=== PATIENT | female | born 1955 | race Two or more races ===

== ENCOUNTER → 2022-01-04 09:30 | Outpatient (BNVA) | payer OTHER, SELFPAY | PROVIDERS: PCP Internal Medicine; Visit Provider Nurse Practitioner Family | DX: F07.81 Postconcussional syndrome (principal); F09 Unspecified mental disorder due to known physiological condition; G44.86 Cervicogenic headache | CPT/HCPCS: 99212 ==

== ENCOUNTER → 2022-03-06 09:12 | Outpatient (BNVA) | payer OTHER, SELFPAY | PROVIDERS: PCP Internal Medicine; Visit Provider Nurse Practitioner Family | DX: M79.10 Myalgia, unspecified site (principal); R51.9 Headache, unspecified; F07.81 Postconcussional syndrome; F48.8 Other specified nonpsychotic mental disorders; R23.4 Changes in skin texture; Z88.6 Allergy status to analgesic agent; Z88.8 Allergy status to other drugs, medicaments and biological substances; Z79.899 Other long term (current) drug therapy | CPT/HCPCS: 99212 ==

== ENCOUNTER → 2022-05-10 07:50 | Outpatient (BNVA) | payer OTHER, SELFPAY | PROVIDERS: PCP Internal Medicine; Visit Provider Nurse Practitioner Family | DX: G44.86 Cervicogenic headache (principal); F07.81 Postconcussional syndrome; F09 Unspecified mental disorder due to known physiological condition | CPT/HCPCS: 99212 ==

== ENCOUNTER → 2022-07-22 08:29 | Outpatient (BNVA) | payer OTHER, SELFPAY | PROVIDERS: PCP Internal Medicine; Visit Provider Nurse Practitioner Family | DX: F07.81 Postconcussional syndrome (principal); R42 Dizziness and giddiness; M79.10 Myalgia, unspecified site; G44.86 Cervicogenic headache; F09 Unspecified mental disorder due to known physiological condition | CPT/HCPCS: 99212 ==

== ENCOUNTER → 2022-11-21 13:51 | Outpatient (BNVA) | payer OTHER, SELFPAY | PROVIDERS: PCP Internal Medicine; Visit Provider Nurse Practitioner Family | DX: R42 Dizziness and giddiness (principal); G44.86 Cervicogenic headache; F07.81 Postconcussional syndrome | CPT/HCPCS: 99212 ==

== ENCOUNTER → 2023-02-27 10:50 | Outpatient (BNVA) | payer OTHER, SELFPAY | PROVIDERS: PCP Internal Medicine; Visit Provider Nurse Practitioner Family | DX: M79.10 Myalgia, unspecified site (principal); R42 Dizziness and giddiness; W19.XXXA Unspecified fall, initial encounter; F07.81 Postconcussional syndrome; G44.86 Cervicogenic headache; R29.818 Other symptoms and signs involving the nervous system | CPT/HCPCS: 99212 ==

== ENCOUNTER 2023-06-02 11:30 | Outpatient (AMB) | payer OTHER, SELFPAY ==
--- NOTE | 2023-06-02 11:30 | MHC.OFFVIS ---
Intake Vital Signs 06/02/23 11:31 Height 5 ft 3 in Weight 169 lb 4 oz BMI 30.0 BP 152/94 H Blood Pressure Location Rt brachial Position Sitting Pulse 104 H Pulse Source Pulse Oximeter Pulse Oximetry (%) 97 Oxygen Delivery Method Room Air Intake Visit Reasons: WC 3m follow up - LVM Intake Note: Pt presents as a WC f/u. Pt states Basically the same, not as much back pressure, not a constant headache. Still have noticed If I'm looking and I turn, I don't feel the vertigo, I feel like the head is moving-not spinning. 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 30 days HPI HPI Comments History of Present Illness Details 67-yr-old female presents for f/u visit. Pt denies any significant interval medical changes. She did retry the B2 and Mag- but caused worsening headache so stop. She has not been having a constant headache. Has had days without any headache at all. She now sporadically has the more intense pressure headache or the ping pong or sharp/stabbing headache- now much slower- may have 1 per week or one every 2 weeks. The new bilateral occipital region aching headache is not as present- not a/w photo/phonophobia. These headaches do not respond as well to the rizatripatn. Her neck is not as tight. She is compliant w/ Indomethacin 75mg tid. However the propranolol 20mg bid was not covered by work comp- so she is not taking it. She is using Rizatriptan 10mg prn- which helps her typical headaches. She is still prone to dizziness and feeling off-balance- more so if she moves or gets up to fast, but sometimes even if turning slower- it may feel like her brain is shifting. She has gotten a cane- her dtr found her one- using for walking longer distances. She reports that she cannot use her phone or the computer or read (a book) for much longer than 20 minutes- as the light and visual tracking elicits dizziness, eye fatigue. PFSH Medical History HTN (hypertension) Surgical History H/O hernia repair H/O wrist surgery H/O: hysterectomy Family History Mother Colon cancer Father Myocardial infarction Brother Myocardial infarction Social History (Updated 06/02/23 @ 11:38 by Jessi Roque CMA) Alcohol intake: current Alcohol intake frequency: holidays/special occasions only Patient Tobacco Use Status: Never used Tobacco Review of Systems Const All systems reviewed & are unremarkable except as noted in HPI and below Physical Exam Vital Signs: Last Vital Signs Pulse 104 H 06/02/23 11:31 BP 152/94 H 06/02/23 11:31 Pulse Ox 97 06/02/23 11:31 Oxygen Delivery Method Room Air 06/02/23 11:31 BMI result Body Mass Index 30.0 Const General: cooperative and no acute distress Orientation/consciousness: patient oriented x3 HEENT Head: Yes normocephalic Resp Effort & Inspection: normal respiratory effort and able to speak in complete sentences Neuro General: patient oriented x3, gait normal and CN's II-XI intact bilaterally Cognition (Neuro): normal cognition Motor exam (neuro): 5/5 motor strength present throughout Psych Appearance: grossly normal Mental Status: mental status grossly normal Speech and movement: Normal speech and movement present Affect: normal affect Attitude: cooperative Thought process: Normal thought process present Thought content: Normal thought content present Insight: Good insight present (Psych) Judgement: Good judgement present (Psych) Assessment & Plan Assessment & Plan (1) Postconcussion syndrome: Code(s): F07.81 - Postconcussional syndrome (2) Headache, cervicogenic: Comment: multiple headache types: ping-pong headache is indomethacin responsive; right sided headache; is triptan responsive, new onset occipital headache- ? secondary to stopping Mag and B2 Code(s): G44.86 - Cervicogenic headache (3) Vertigo: Code(s): R42 - Dizziness and giddiness Plan Hold Riboflavin 400mg qam and Magnesium Ox 400mg qhs. Continue Indomethacin 75 mg tid. Avoid other NSAID use. Check CBC/CMP Resume Propranolol at 20mg bid. Continue Rizatriptan 10mg prn. Continue PT exercises Continue blue light filtering glasses. Use walking cane- use when dizzy or on uneven surfaces. When apporved- [facility] balance evaluation to further assess pt's ongoing balance difficulties. ? f/u in 2-3 months or sooner prn. Orders: Orders Comprehensive Met. Panel Today G44.86 - Cervicogenic headache, I10 - Essential (primary) hypertension, R42 - Dizziness and giddiness Complete Blood Count Auto Diff Today G44.86 - Cervicogenic headache, I10 - Essential (primary) hypertension, R42 - Dizziness and giddiness Medications: New propranolol 20 mg PO BID 30 days 60 tabs 3RF Coding Level of Care Code Est Pt Level 4 (90716) Diagnoses Postconcussion syndrome F07.81 Headache, cervicogenic G44.86 Vertigo R42
[2023-06-02 11:31] VITALS: BP 152/94; PULSE 104; O2SAT 97
== END 2023-06-02 12:27 | disposition home or self-care (01) ==
LOC: HO.HSMS 11:30
PROVIDERS: PCP Internal Medicine; Visit Provider Nurse Practitioner Family
DX: F07.81 Postconcussional syndrome (principal); G44.86 Cervicogenic headache; R42 Dizziness and giddiness
CPT/HCPCS: 99214

== ENCOUNTER → 2023-06-02 11:30 | Outpatient (BNVA) | payer OTHER, SELFPAY | PROVIDERS: PCP Internal Medicine; Visit Provider Nurse Practitioner Family | DX: F07.81 Postconcussional syndrome (principal); G44.86 Cervicogenic headache; R42 Dizziness and giddiness; Z79.899 Other long term (current) drug therapy | CPT/HCPCS: 99212 ==

== ENCOUNTER 2023-09-18 11:07 | Outpatient (AMB) | payer OTHER, SELFPAY ==
--- NOTE | 2023-09-18 11:08 | A.OFFVIS_ITS ---
Intake Vital Signs 09/18/23 11:09 Height 5 ft 3 in Weight 167 lb BMI 29.6 BP 138/88 Blood Pressure Location Rt brachial Position Sitting Intake Visit Reasons: WC 3m follow up-Confirmed Intake Note: Patient presents for 3 month follow up. Patient states no issues or concerns Allergies acetaminophen [From Percocet] Allergy (Mild, Verified 09/18/23 11:11) unknown oxycodone [From Percocet] Allergy (Mild, Verified 09/18/23 11:11) unknown Medication List - Last Reconciled 09/18/23 by RTUE Morin cane As directed cane Tripod walking cane indomethacin 75 mg (3 x 25 mg) PO TID 30 days lidocaine 5% 1 patch topical DAILY PRN meclizine 25 mg PO TID PRN propranolol 20 mg PO BID 30 days rizatriptan take 1 tab at onset of headache; if no relief may repeat 1 tab after at least 2 hrs; max = 2 tabs/24 hr, 4 tabs/wk. 30 days HPI HPI Comments History of Present Illness Details 68-yr-old female presents for f/u visit. Pt denies any significant interval medical changes. Still having a sporadic sharp, stabbing pain- location varies, but more intense on the right. Lasts < 5 minutes. Now occurring 3-4 x's per week. She recently was w/o her Indomethacin for a few days, these pains came on stronger, more frequent, and lasted longer. She is having dizziness if she gets up too quickly or if walking down stairs and has to look down. Rarely the dizziness will alst long enough that she needs to take a meclizine. Feels she is better able to adapt to the dizziness. The cane does help. She did have a recent few days of right knee swelling and pain, which resolved with rest and ice. [facility] Medical History HTN (hypertension) Surgical History H/O wrist surgery H/O hernia repair H/O: hysterectomy Family History Mother Colon cancer Father Myocardial infarction Brother Myocardial infarction Social History Alcohol intake: current Alcohol intake frequency: holidays/special occasions only Patient Tobacco Use Status: Never used Tobacco Review of Systems Const All systems reviewed & are unremarkable except as noted in HPI and below Physical Exam Vital Signs: Last Vital Signs BP 138/88 09/18/23 11:09 BMI result Body Mass Index 29.6 Const General: cooperative and no acute distress Orientation/consciousness: patient oriented x3 HEENT Head: Yes normocephalic Resp Effort & Inspection: normal respiratory effort and able to speak in complete sentences Neuro Other: Unsteady gait during turns. Steadier with cane. General: patient oriented x3 and CN's II-XI intact bilaterally Cognition (Neuro): normal cognition Motor exam (neuro): 5/5 motor strength present throughout Psych Appearance: grossly normal Mental Status: mental status grossly normal Speech and movement: Normal speech and movement present Affect: normal affect Attitude: cooperative Thought process: Normal thought process present Thought content: Normal thought content present Insight: Good insight present (Psych) Judgement: Good judgement present (Psych) Assessment & Plan Assessment & Plan (1) Postconcussion syndrome: Code(s): F07.81 - Postconcussional syndrome (2) Headache, cervicogenic: Comment: multiple headache types: ping-pong headache is indomethacin responsive; right sided headache; is triptan responsive, new onset occipital headache- ? secondary to stopping Mag and B2 Code(s): G44.86 - Cervicogenic headache (3) Cognitive dysfunction: Onset Date: ~02/27/23 Comment: ? d/t postconcussion, ? r/t headache burden, ? age-related/MCI. Code(s): F09 - Unspecified mental disorder due to known physiological condition (4) Vertigo: Code(s): R42 - Dizziness and giddiness Plan Continue Indomethacin 75 mg tid. Avoid other NSAID use. Check BMP Meclizine 25mg tid prn. Continue Propranolol at 20mg bid. Continue Rizatriptan 10mg prn. Continue PT exercises Continue blue light filtering glasses. Use walking cane- use when dizzy or on uneven surfaces. ? f/u in 4 months or sooner prn. Orders: Orders Basic Metabolic Panel 09/18/23 I10 - Essential (primary) hypertension Medications: Changed From meclizine 25 mg PO TID PRN To meclizine 25 mg PO TID 30 days PRN 30 tabs 3RF dizziness Coding Level of Care Code Est Pt Level 4 (50484) Diagnoses Postconcussion syndrome F07.81 Headache, cervicogenic G44.86 Cognitive dysfunction F09 Vertigo R42
[2023-09-18 11:09] VITALS: BP 138/88; BMI 29.6
== END 2023-09-18 11:46 | disposition home or self-care (01) ==
PROVIDERS: PCP Internal Medicine; Visit Provider Nurse Practitioner Family
DX: G44.86 Cervicogenic headache (principal); F07.81 Postconcussional syndrome; F06.70 Mild neurocognitive disorder due to known physiological condition without behavioral disturbance; R42 Dizziness and giddiness
CPT/HCPCS: 99214

== ENCOUNTER → 2023-09-18 11:07 | Outpatient (BNVA) | payer OTHER, SELFPAY | PROVIDERS: PCP Internal Medicine; Visit Provider Nurse Practitioner Family | DX: F07.81 Postconcussional syndrome (principal); G44.86 Cervicogenic headache; F09 Unspecified mental disorder due to known physiological condition; R42 Dizziness and giddiness; Z79.899 Other long term (current) drug therapy | CPT/HCPCS: 99212 ==

== ENCOUNTER 2025-11-09 09:26 | Outpatient (AMB) | payer MEDICARE, SELFPAY ==
--- NOTE | 2025-11-09 09:30 | A.OFFPC_ITS ---
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 Left big toe has been swollen and painful. Has pessary Accompanied by: Self / Same As Patient Allergies acetaminophen (From Percocet) Allergy (Intermediate, Verified 11/09/25 09:51) Rash oxycodone (From Percocet) Allergy (Intermediate, Verified 11/09/25 09:51) Rash Tobacco use date assessed: 11/09/25 Fall risk assessment: No Falls in past year Last assessed Fall Risk: 11/09/25 Dental Screening Dental Screen Date: 11/09/25 Did you have a dental visit in the last 12 months?: Yes Was dental information given to patient?: Patient has dentist HPI HPI Comments History of Present Illness Details History of Present Illness The patient is a 70 year old female presenting to [facility] and for evaluation of left great toe swelling, discoloration, and pain. Raynaud's Phenomenon: The patient presents with a primary concern of a swollen left great toe, which has been present for about a month and has worsened with the recent cold weat her. She describes a faint blue patch on the toe and a recent episode of a red patch accompanied by sharp, shooting, intermittent pain that woke her from sleep. She reports a diagnosis of Raynaud's phenomenon approximately 50 years ago, characterized by blue discoloration of her toes and fingertips, for which she was treated with medication for two consecutive de guzman. She notes that her symptoms are typically more pronounced in her toes than her fingers and seem to be more sensitive at night. Chronic Low Back Pain: The patient has a history of myofascial pain syndrome, multilevel lumbosacral spondylosis without myelopathy, and lumbar facet arthropathy. She underwent a right L4-L5, L5-S1 radiofrequency ablation in 2021, which provided complete pain relief for two years. Recently, she has experienced a recurrence of intense, intermittent, right-sided low back pain, rated 10/10 in severity, which is provoked by standing after sitting and has impacted her daily activities and sleep. She is currently awaiting approval from workman's compensation for repeat medial branch blocks with the intention of proceeding with another radiofrequency ablation if effective. Vaginal Vault Prolapse: The patient has a history of prolapse of the vaginal vault post-hysterectomy, a midline cystocele, and occult stress urinary incontinence. She is under the care of a urogynocologist and uses a Gelhorn pessary. A corrective surgery requiring two surgeons was planned but has been postponed and is being rescheduled for after the spring school semester. Vertigo: The patient reports experiencing vertigo, described as an internal spinning sensation in her head, since a past accident that resulted in a back concussion. Symptoms can be triggered by turning too quickly or rising from a bent-over position, leading to a loss of balance. She uses a cane primarily for stability to prevent falls, especially in unfamiliar places, but does not require it at home or at her workplace. She denies any falls within the last year. 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 - Substance Use: Reports a remote histor y of smoking one cigarette a day for about a year at age 11 but denies current use. - She denies any history of illicit drug use. - Functional Status: Uses a cane for bal ance due to vertigo, particularly in unfamiliar environments. Family History: - Mother: of colon cancer at age 69 . - Maternal Grandmother: Breast cancer, d iagnosed around the patient's current age. - Father: of a massive heart attack at age 54. - Brother: of a massive heart attac k at age 53. Past Medical History - Myofascial pain syndrome - Multilevel lumbosacral spondylosis wit hout myelopathy - Lumbar facet arthropathy - Prolapse of vaginal vault post-hystere ctomy - Midline cystocele - Occult stress urinary incontinence - Labile blood pressure and white coat h ypertension - Migraine - Raynaud's phenomenon, diagnosed approx imately 50 years ago - Vertigo, secondary to a past back conc ussion - History of benign colonic polyps - History of soft tissue abscesses and i ntra-abdominal adhesions - History of a severe dog bite to the [facility] wrist in 1981 Health Maintenance - Comprehensive blood work will be order ed to establish a baseline, including a CBC, CMP, TSH, B12, folate, vitamin D, lipid panel, and HbA1c. - Urinalysis and an infectious disease p alfredo (Hepatitis B, Hepatitis C, HIV, syphilis) will also be ordered. - Referrals will be placed for a screeni ng colonoscopy and a screening mammogram, as the patient is overdue for both. [facility] Medical History (Updated 11/09/25 @ 11:02 by Haroon Palmer MD) Migraine Ambulates with cane Vaginal vault prolapse Chronic lower back pain Raynauds phenomenon White coat syndrome with high blood pressure but without hypertension Raynauds disease Toe pain, right HTN (hypertension) Surgical History H/O wrist surgery H/O hernia repair H/O: hysterectomy Family History Mother Colon cancer Father Myocardial infarction Brother Myocardial infarction Social History Housing: House Alcohol intake: current Alcohol intake frequency: holidays/special occasions only Patient Tobacco Use Status: Never used Tobacco e-Cigarette/Vaping Use: Never Used service: No Current occupational status: employed Cognitive needs: Yes (cane) Hearing needs: No Vision needs: Yes (glasses) Questionnaire PHQ-9 Over the last 2 weeks, how often have you been bothered by any of the following problems? 1. Little interest or pleasure in doing things: not at all 2. Feeling down, depressed, or hopeless: not at all 3. Trouble falling or staying asleep, or sleeping too much: not at all 4. Feeling tired or having little energy: not at all 5. Poor appetite or overeating: not at all 6. Feeling bad about yourself - or that you are a failure or have let yourself o r your family down: not at all 7. Trouble concentrating on things, such as reading the newspaper or watching television: not at all 8. Moving or speaking so slowly that other people could have noticed. Or the opposite - being so fidgety or restless that you have been moving around a lot more than usual: not at all 9. Thoughts that you would be better off or of hurting yourself in some way: not at all Total score: 0 Depression Screening Interpretation: Negative Depression Screening Done: Yes Source: Developed by Drs. Manjinder Pemberton, Maria Fernanda Baldwin, Michael Stahl and colleagues, with an educational mona from [employer]. Thrive Questionnaire Date Thrive assessed: 11/09/25 I am a: Patient What is your living situation today?: I have a steady place to live Within the past 12 months, did the food you bought not last and you didn't have the money to get more?: Never true Within the past 12 months, did you worry whether your food would run out before you got money to buy more?: Never true Do you have trouble paying for medicines?: No Do you have trouble getting transportation to medical appointments?: No Do you have trouble paying your heating and electricity bill?: Yes Do you have trouble taking care of your child, family member or friend?: No Do you have trouble with day-to-day activities such as bathing, preparing meals, shopping, managing finances, etc.?: No Are you currently unemployed and looking for a job?: No Are you interested in more education?: No Please select the resources that you would like help with: Utilities Currently or been in a relationship where the following occur: I choose not to answer THRIVE Score: 1 AUDIT C Alcohol Use Questionnaire (AUDIT-C) 1. How often do you have a drink containing alcohol?: Never Total Score: 0 SHWETA-7 AMB Questionnaire SHWETA-7 Date SHWETA - 7 assessed: 11/09/25 Feeling nervous, anxious, or on edge: 0 = Not at all Not being able to stop or control worryin = Not at all Worrying too much about different things: 0 = Not at all Trouble relaxin = Not at all Being so restless that it is hard to sit still: 0 = Not at all Becoming easily annoyed or irritable: 0 = Not at all Feeling afraid as if something awful might happen: 0 = Not at all Total SHWETA-7 score (0-4 normal; 5-9 mild; 10-14 moderate; 15-21 severe): 0 Source: Developed by Drs. Manjinder Pemberton, Maria Fernanda Baldwin, Michael Stahl and colleagues, with an educational omna from [employer]. Review of Systems Narrative Review of Systems - Neurological: Reports vertigo with an internal spinning sensation, dizziness, and imbalance, especially with quick movements. - Musculoskeletal: Reports intense, intermittent, right-sided low back pain. - Extremities: Reports a swollen, tender left great toe with discoloration and sharp, intermittent pain. - She also reports a recently resolved issue of a swollen, tender, and painful right middle finger. - Genitourinary: Reports stress urinary incontinence. - General: Sleep is adequate. - GI/: Reports normal bowel and bladder function. 10-point ROS reviewed and negative except as noted in HPI Physical exam (Primary Care) Vital Signs: Last Vital Signs Temp 98.3 F 11/09/25 09:53 Pulse 86 11/09/25 09:53 BP 178/88 H 11/09/25 09:53 Pulse Ox 97 11/09/25 09:53 Oxygen Delivery Method Room Air 11/09/25 09:53 Tobacco/Smoking Status: Tobacco use Status Tobacco use date assessed 11/09/25 11/09/25 09:31 Patient Tobacco Use Status Never used Tobacco 11/09/25 09:31 e-Cigarette/Vaping Use Never Used 11/09/25 09:31 PHQ-9: PHQ-9 Score PHQ-9: Total score 0 11/09/25 10:08 Depression Screening Interpretation: Negative Thrive Assessment: Date of Thrive Assessment Date Thrive assessed 11/09/25 11/09/25 09:31 Currently or been in a relationship where the following occur: I choose not to answer Narrative Physical Exam General: Well-appearing, in no acute distress. Vital signs: Within normal limits. HEENT: Normocephalic, atraumatic. PERRLA, EOMI. Conjunctiva clear, sclera anicteric. Oropharynx clear, mucous membranes moist. TMs intact bilaterally. Neck: Supple, no lymphadenopathy, no thyromegaly, no JVD or carotid bruits. Cardiovascular: RRR, normal S1/S2, no murmurs, rubs, or gallops. Peripheral pulses 2+ and symmetric. No edema. Respiratory: Lungs clear to auscultation bilaterally, no wheezes, rales, or rhonchi. Normal effort. Abdomen: Soft, non-tender, non-distended. Normoactive bowel sounds. No hepatosplenomegaly, no masses. MSK: Full range of motion, no joint swelling or deformity. Normal gait. Uses a cane for balance due to vertigo. Skin: Warm, dry, intact. No rashes, lesions, or pallor. Notable for a swollen left big toe with a faint blue patch and intermittent red patch. Neuro: Alert and oriented x3. Cranial nerves II-XII intact. Strength 5/5 throughout. Sensation intact. Reflexes 2+ symmetric. Normal coordination and gait. Reports vertigo and dizziness, uses a cane for stability. Psych: Appropriate mood and affect. Normal judgment and insight. Office Procedures Flu Questionnaire Does the patient have a severe egg allergy?: No Does the patient have severe life threatening allergies?: No Does the patient have a fever or illness today?: No Has the patient ever had Guillain-Sutton Syndrome?: No Has the patient ever had any past reaction to a flu shot?: No Immunizations Fluarix 9095-2615 (PF) 45 mcg (15 mcg x 3)/0.5 mL IM syringe Performing Provider: Haroon Palmer MD [facility] Administered by: Shirley Nolasco CMA on 11/09/25 10:08 Dose Route Admin Location Dispensed Lot Number Expiration Date NDC Rivet [employer]ater 0.5 mL IM Left Deltoid 0.5 mL [id number] 05/23/26 [id number] [employer] VIS Given Date VIS Provided VIS Publication Date 11/09/25 Single Vaccine 24 Eligibility Eligibility Date Funding Source Not [facility] Eligible 11/09/25 Private Coding Level of Care Code New Pt Level 4 (58316) Add On Problem Visit Only Diagnoses Raynauds disease I73.00 White coat syndrome with high blood pressure but without hypertension R03.0 Raynauds phenomenon I73.00 Chronic lower back pain M54.50; G89.29 Vaginal vault prolapse N81.9 Vertigo R42 Ambulates with cane Z99.89 Migraine G43.909 Toe pain, right M79.674 Falls W19.XXXA HTN (hypertension) I10 Assessment & Plan Assessment & Plan (1) Raynauds disease: Code(s): I73.00 - Raynaud's syndrome without gangrene Category: Medical (2) White coat syndrome with high blood pressure but without hypertension: Code(s): R03.0 - Elevated blood-pressure reading, without diagnosis of hypertension Category: Medical (3) Raynauds phenomenon: Code(s): I73.00 - Raynaud's syndrome without gangrene Category: Medical (4) Chronic lower back pain: Code(s): M54.50 - Low back pain, unspecified; G89.29 - Other chronic pain Category: Medical (5) Vaginal vault prolapse: Code(s): N81.9 - Female genital prolapse, unspecified Category: Medical (6) Vertigo: Code(s): R42 - Dizziness and giddiness Category: Medical (7) Ambulates with cane: Code(s): Z99.89 - Dependence on other enabling machines and devices Category: Medical (8) Migraine: Code(s): G43.909 - Migraine, unspecified, not intractable, without status migrainosus Category: Medical (9) Toe pain, right: Code(s): M79.674 - Pain in right toe(s) Category: Medical (10) Falls: Code(s): W19.XXXA - Unspecified fall, initial encounter Category: Medical (11) HTN (hypertension): Code(s): I10 - Essential (primary) hypertension Category: Medical Plan Consent The patient provided verbal consent to have a picture taken of her affected toe for documentation in her medical record. Patient was informed and verbally consented to the use of an ambient scribe for clinic note documentation during this visit. Plan 1. Raynaud's Phenomenon - A trial of nifedipine 30 mg extended-release once daily will be initiated to manage symptoms. - An arterial duplex ultrasound of the bilateral lower extremities will be ordered to evaluate for underlying peripheral arterial disease. - A referral will be placed for a podiatry consultation. 2. Chronic Low Back Pain - The patient's chronic back pain is being managed by a pain specialist. - She is awaiting worker's compensation approval for further intervention. - No changes to her current management plan were made at this visit. 3. Vaginal Vault Prolapse - The patient is under the care of a urogynocologist for this condition. - She is awaiting surgical correction, and no changes to her management were made at this visit. 4. Follow-Up - The patient is to return to the clinic in two weeks to review the results of the ordered diagnostic tests. Discussion Notes I have reviewed the patient's extensive medical history and her presenting complaint of left great toe pain and discoloration. I explained that while her symptoms are consistent with her history of Raynaud's phenomenon, it is imp ortant to rule out any underlying vascular compromise. To that end, I am ordering a bilateral lower extremity arterial ultrasound and placing a referral to podiatry for further evaluation. I will initiate a trial of low-dose nifedipine to see if it provides symptomatic relief. We also discussed the importance of preventative health, and I emphasized that she is overdue for both a screening colonoscopy and mammogram, given her age and family history. I have placed referrals for these screenings, in addition to ordering baseline laboratory studies. The patient will follow up in two weeks to go over all of the results. Patient Instructions - Please go to our on-site lab for blood work. - You do not need to fast for these tests. - Our referral center will call you to schedule several appointments: an ultrasound of your legs, a podiatry (foot doctor) visit, a colonoscopy, and a mammogram. - I have sent a prescription for Nifedipine 30 mg to your pharmacy. - Please take one tablet by mouth once daily for your toe symptoms. - Please schedule a follow-up appointment in two weeks to review your test results. Medical Decision Making This 70-year-old female presents to establish care with multiple chronic conditions and an acute complaint of left great toe pain, swelling, and discoloration. Her symptoms are highly suggestive of an exacerbation of her long-standing Raynaud's phenomenon, especially given the association with cold weather. However, given the tenderness, discoloration, and potential risk for tissue damage, it is prudent to rule out underlying peripheral arterial disease. Therefore, a bilateral lower extremity arterial duplex ultrasound is warranted. For management, I will initiate a trial of low-dose nifedipine, a calcium channel kelly commonly used for Raynaud's, to assess for symptomatic improvement. A referral to podiatry is also appropriate for expert evaluation and management of the foot complaint. The patient's other chronic issues, including her low back pain and vaginal prolapse, are being appropriately managed by other specialists, and I will not intervene in their care plans at this time. As this is an initial visit, comprehensive baseline labs are being ordered. The patient is also significantly overdue for age- and risk-appropriate cancer screenings, so referrals for both a colonoscopy and mammogram have been placed based on her personal and family history. Follow-up in two weeks is scheduled to review all results and adjust the plan accordingly. Total Time Statement 30 min Total time spent caring for the patient today includes pre-visit chart review, documentation, review of laboratory and diagnostic imaging results, medication reconciliation, medically necessary evaluation, counseling on diagnoses, care coordination, ordering appropriate tests and medications, review of tests performed by other providers, reporting test results to the patient, and communication with other healthcare providers. Orders: Orders Hepatitis C Antibody Today Z13.9 - Encounter for screening, unspecified TSH reflex Free T4 Today Z13.9 - Encounter for screening, unspecified HIV Ab/Ag Today Z13.9 - Encounter for screening, unspecified Vitamin B12 and Folate Today Z13.9 - Encounter for screening, unspecified Magnesium Today Z13.9 - Encounter for screening, unspecified MM screening mammo BI Today Z12.31 - Encounter for screening mammogram for malignant neoplasm of breast US arterial duplex LE BI Today I73.00 - Raynaud's syndrome without gangrene Influenza [id number] Immunization Today Z23 - Encounter for immunization Complete Blood Count Auto Diff Today Z13.9 - Encounter for screening, unspecified Hepatitis B Surface Antigen Today Z13.9 - Encounter for screening, unspecified Syphilis Screen Today Z13.9 - Encounter for screening, unspecified Comprehensive Met. Panel Today Z13.9 - Encounter for screening, unspecified UA CC w/rflx Micro + Cult Today Z13.9 - Encounter for screening, unspecified Lipid Panel Today Z13.9 - Encounter for screening, unspecified Hemoglobin A1c Today Z13.9 - Encounter for screening, unspecified Hepatitis B Surface Antibody Today Z13.9 - Encounter for screening, unspecified Vitamin D 25-OH (D2 and D3) Today Z13.9 - Encounter for screening, unspecified Microalbumin, Random (w Creat) Today Z13.9 - Encounter for screening, unspecified Referrals Open Access Screening Colonoscopy Referral Z12.11 - Encounter for screening for malignant neoplasm of colon, Z12.12 - Encounter for screening for malignant neoplasm of rectum Podiatry Referral M79.227 - Pain in right toe(s) Medications: New nifedipine ER 30 mg PO DAILY 30 tabs 0RF I73.00 - Raynaud's syndrome without gangrene
[2025-11-09 09:53] VITALS: BP 178/88; PULSE 86; TEMP 36.8; O2SAT 97
--- OUTSIDE RECORDS SUMMARY | 2025-11-09 10:46 | XMS_ITS | Clinical Summary ---
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 Active rizatriptan (MAXALT) 10 mg tablet Take 10 mg by mouth as needed. May repeat in 2 hours if needed Active amitriptyline (ELAVIL) 25 mg tablet Take 1.5 Tabs by mouth at bedtime Active lidocaine (LIDODERM) 5 % patch Place 1 Patch onto the skin every 24 hours. Apply for no more than 12 hours in any 24 hour period., Disp-28 Patch, R-0, Normal Per pt this is workers comp., we are aware her regular insurance does not cover. 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 F/u in 1 year Acute right-sided low back pain without sciatica 06/19/2017 Immunizations Immunization Administration Dates Next Due Moderna SARS-CoV-2 COVID-19, mRNA, LNP-S, preservative free 10/27/2021,02/14/2021,01/17/2021 Surgical History Surgery Date Site/Laterality Comments WRIST SURGERY 1981 Right PROCEDURE: HISTORICAL WRIST SURGERY; COMMENT: dog bite OTHER SURGICAL HISTORY 2002 PROCEDURE: HI TOTAL ABDOMINAL HYSTERECT W/WO RMVL TUBE OVARY; COMMENT: [facility] HERNIA REPAIR 09/2015 PROCEDURE: HISTORICAL HERNIA REPAIR/VAUGHN COLONOSCOPY 09/07/2015 PROCEDURE: HISTORICAL COLONOSCOPY; COMMENT: negative COLONOSCOPY 07/30/2018 PROCEDURE: HISTORICAL COLONOSCOPY; COMMENT: 1 diminutive polypm repeat colonoscopy in 5 years. OTHER SURGICAL HISTORY 07/30/[address] [facility] PROCEDURE: COLONOSCOPY LESION REMOVAL; COMMENT: diminutive adenoma; repeat in 5 yrs under propofol Medical History Medical History Date Comments History of colon polyps 12/09/2017 DX:Histo ry of colon polyps Family History Medical History Relation Name Comments Heart attack Brother No Known Problems Daughter 1 No Known Problems Daughter 2 Heart attack Father Heart attack Maternal Grandfather Heart attack Maternal Grandmother in her 90's Colon cancer Mother Coronary artery disease Paternal Grandfather Stroke Paternal Grandmother No Known Problems Son Blindness Neg Hx Cataracts Neg Hx Glaucoma Neg Hx Macular degeneration Neg Hx Strabismus Neg Hx Relation Name Status Comments Brother Daughter 1 Alive Daughter 2 Alive Father Maternal Grandfather Maternal Grandmother Mother Paternal Grandfather Paternal Grandmother Son Alive Social History Tobacco Use Types Packs/Day Years Used Date Smoking Tobacco: Former Smokeless Tobacco: Never Alcohol Use Standard Drinks/Week Comments Yes 0 (1 standard drink = 0.6 oz pur e alcohol) Comments Unknown Sex and Gender Information Value Date Recorded Sex Assigned at Not on file Legal Sex Female 8:59 AM EST Gender Identity Not on file Sexual Orientation Not on file Last Filed Vital Signs Vital Sign Reading Time Taken Comments Blood Pressure 116/74 07/07/2024 1:30 PM EDT L A rm Pulse 84 07/07/2024 1:30 PM EDT Temperature - - Respiratory Rate - - Oxygen Saturation - - Inhaled Oxygen Concentration - - Weight 73 kg (160 lb 14.4 oz) 07/04/2022 8:24 AM EDT Height 160 cm (5' 3 ) 07/04/2022 8:24 AM EDT Body Mass Index 28.5 07/04/2022 8:24 AM EDT Plan of Treatment Health Maintenance Due Date Last Done Comments Colorectal Cancer Screening: Colonoscopy 1955 Pneumococcal Vaccine: 50+ Years (1 of 1 - PCV) 2003 Zoster Vaccines (1 of 2) 2003 Breast Cancer Screening 07/01/2020 07/01/2018 Falls Risk Assessment 11/02/2022 Medicare Annual Wellness Visit 11/02/2022 Osteoporosis Screening (Bone Density Screening) 11/02/2022 Social Influencers of Health Screening 11/02/2022 COVID-19 Vaccine ( season) 2025 08/12/2024, 10/02/2023, 12/02/2022, Additional history exists Influenza Vaccine (#1) 2025 11/02/2019 RSV Immunization Adult Patients (1 - 1-dose 75+ series) 2028 DTaP,Tdap,and Td Vaccines (3 - Td or Tdap) 11/05/2029 11/05/2019, 06/06/2015 Hepatitis C Screening Completed 06/19/2017 Depression Screening Completed 03/03/2025 HIB Vaccines Aged Out No longer eligi ble based on patient's age to complete this topic HPV Vaccines Aged Out No longer eligi ble based on patient's age to complete this topic Hepatitis A Vaccines Aged Out No long er eligible based on patient's age to complete this topic Hepatitis B Vaccines Aged Out No long er eligible based on patient's age to complete this topic IPV Vaccines Aged Out No longer eligi ble based on patient's age to complete this topic MMR Vaccines Aged Out No longer eligi ble based on patient's age to complete this topic Meningococcal ACWY Vaccine Aged Out N o longer eligible based on patient's age to complete this topic Meningococcal B Vaccine Aged Out No l onger eligible based on patient's age to complete this topic RSV Immunization Patients Under 20 months Aged Out No longer eligible based on patient's age to complete this topic Varicella Vaccines Aged Out No longer eligible based on patient's age to complete this topic Procedures Procedure Name Priority Date/Time Associated Diagnosis Comments SCR MAMMO BI INCL CAD Routine 07/01/2018 8:45 AM EDT Encounter for screening mammogram for malignant neoplasm of breast HEPATITIS C SCREENING Routine 06/19/2017 from Last 3 Months or Most Recently Relevant to Health Maintenance Results * SCR MAMMO BI INCL CAD (07/01/2018 8:45 AM EDT) Anatomical Region Laterality Modality Radiographic Nikkie ging 06/22/2018 4:29 PM EDT Narrative 07/01/2018 10:11 AM EDT This is a summary report. The complete report is available in the patient's medical record. If you cannot access the medical record, please contact the sending organization for a detailed fax or copy. Full field digital screening mammography, reviewed with CAD and compared to previous. The breasts are composed mostly of fatty tissue. No suspicious mass, architectural distortion or suspicious calcifications are identified. IMPRESSION: : No mammographic evidence of malignancy. BIRADS 1-Negative; N. 5 year breast cancer risk assessment 2.2 % Lifetime breast cancer risk assessment 8.9 % Breast cancer risk category Low (<15%) Procedure Note Josiah Euceda MD - 11/12/2022 This is a summary report. The complete report is available in thepatient's medical record. If you cannot access the medical record, pleasecontact the sending organization for a detailed fax or copy. Full field digital screening mammography, reviewed with CAD and comparedto previous. The breasts are composed mostly of fatty tissue. Nosuspicious mass, architectural distortion or suspicious calcifications areidentified. IMPRESSION: : No mammographic evidence of malignancy. BIRADS 1-Negative; N. 5 year breast cancer risk assessment 2.2 % Lifetime breast cancer risk assessment 8.9 % Breast cancer risk category Low (<15%) Ramses Bernal MD IMG XR PROCEDURES Final R esult * Hepatitis C Screening (06/19/2017) Hepatitis C Screening abstracted Historical Provider HEALTH MAINTENANCE Final Result from Last 3 Months or Most Recently Relevant to Health Maintenance Insurance MEDICARE Care Teams Crane Follower Relationship Specialty Start Date End Date Ramses Bernal MD PCP - General Internal Medicine 06/06/17
== END 2025-11-09 10:38 | disposition home or self-care (01) ==
PROVIDERS: PCP Student in an Organized Health Care Education/Training Program; Visit Provider Student in an Organized Health Care Education/Training Program
DX: I73.00 Raynaud's syndrome without gangrene (principal); R03.0 Elevated blood-pressure reading, without diagnosis of hypertension; M54.50 Low back pain, unspecified; G89.29 Other chronic pain; N81.9 Female genital prolapse, unspecified; R42 Dizziness and giddiness; Z99.89 Dependence on other enabling machines and devices; G43.909 Migraine, unspecified, not intractable, without status migrainosus; M79.674 Pain in right toe(s); W19.XXXA Unspecified fall, initial encounter; I10 Essential (primary) hypertension; Z23 Encounter for immunization

== ENCOUNTER 2025-11-09 09:26 | Outpatient (REF) | payer MEDICARE, SELFPAY ==
[2025-11-09 14:09] LABS: MANUAL DIFF FLAG NO
[2025-11-09 14:13] LABS: Hematocrit 45.4 % (37.0-47.0); Hemoglobin 15.0 g/dl (12.0-16.0); Imm Gran Abs Auto 0.01 X10*3/uL (0.00-0.03); Imm Gran Pct Auto 0.2 % (0.0-0.4); Lymphocytes Absolute Auto 1.0 X10*3/uL (1.2-4.9); Mean Corpuscular HGB Conc 33.0 g/dl (31.0-35.0); Mean Corpuscular Hemoglobin 31.4 pg (27.0-33.0); Mean Corpuscular Volume 95.2 fL (80.0-98.0); NRBC Abs Auto 0.000 X10*3/uL (0.0-0.012); NRBC Pct Auto 0.0 /100WBC (0.0-0.2); Platelet Count 279 X10*3/uL (160-400); Red Blood Count 4.77 X10*6/uL (4.20-5.50); White Blood Count 6.3 X10*3/uL (4.8-10.8)
[2025-11-09 14:29] LABS: Appearance Urine Clear; Glucose Urine UA Negative (Negative); PH 6.5 (5.0-9.0); Specific Gravity - Urine 1.020 (1.005-1.025); UMIC TRIGGER UACC YES
[2025-11-09 15:33] LABS: Microalbum/Creatinine Ratio Ur 31.2 ug/mg cr (<30)
[2025-11-09 15:42] LABS: Alanine Aminotransferase 23 U/L (0-31); Albumin Level 4.7 g/dL (3.5-5.0); Alkaline Phosphatase 102 U/L (39-117); Anion Gap 11 (12-20); Aspartate Amino Transferase 27 U/L (5-31); Blood Urea Nitrogen 13 mg/dL (9-16); Calcium 9.4 mg/dL (8.4-10.2); Carbon Dioxide 30 mmol/L (22-29); Chloride 104 mmol/L (96-108); Cholesterol 205 mg/dL (<200); Estimated Glomerular Filt Rate > 60; HDL Cholesterol 47 mg/dL (>40); Magnesium 2.2 mg/dL (1.6-2.6); Potassium 3.7 mmol/L (3.3-5.1); Sodium 141 mmol/L (135-145); Total Protein 7.5 g/dL (6.5-8.0); Triglycerides 104 mg/dL (<150)
[2025-11-09 15:54] LABS: Folate 9.1 ng/mL (> or = 4.0); Vitamin B12 522 pg/mL (200-900)
[2025-11-10 04:21] LABS: HBS Num1 0.00 mIU/mL (0-7.99); HIV Num 1 0.09 S/CO (0.00-0.99); ~HepC Num1 0.08 S/CO (0.00-0.79); ~Hepatitis B Surface Antibody NONREACTIVE (Nonreactive); ~Hepatitis C Antibody Nonreactive (Nonreactive)
[2025-11-10 04:57] LABS: Syphilis Screen Nonreactive (Nonreactive)
[2025-11-10 13:15] LABS: HBsAGNum1 0.26 S/CO (0.00-0.99); Hepatitis B Surface Antigen Negative (Negative)
[2025-11-13 10:47] LABS: Vitamin D 25-OH, D2 <4 ng/mL; Vitamin D 25-OH, D3 14 ng/mL; Vitamin D 25-OH, Total 14 ng/mL (30-100)
== END 2025-11-09 09:27 | disposition home or self-care (01) ==
LOC: HO.HKASLDS 09:26
PROVIDERS: PCP Internal Medicine; Visit Provider Student in an Organized Health Care Education/Training Program
DX: Z23 Encounter for immunization (principal); Z13.9 Encounter for screening, unspecified; I73.00 Raynaud's syndrome without gangrene; R03.0 Elevated blood-pressure reading, without diagnosis of hypertension; M54.50 Low back pain, unspecified; G89.29 Other chronic pain; N81.9 Female genital prolapse, unspecified; R42 Dizziness and giddiness; Z99.89 Dependence on other enabling machines and devices; G43.909 Migraine, unspecified, not intractable, without status migrainosus; M79.674 Pain in right toe(s); I10 Essential (primary) hypertension; Z91.81 History of falling
CPT/HCPCS: 36415; 80053; 80061; 81001; 82043; 82306; 82570; 82607; 82746; 83036; 83735; 84443; 85025; 86706; 86780; 86803; 87340; 87389; 90471; 90656; 96127; 99202